=== PATIENT | male | born 1955 | race Caucasian/White ===

== ENCOUNTER 2018-04-29 01:43 | Inpatient (IN) | payer OTHER ==
[~2018-04-29] VITALS: Ht 175.3 cm; Wt 94.9 kg
[2018-04-29 04:10] LABS: Basophils # (auto) 0 uL; Basophils % (auto) 0.5 % (0.0-2.0); Eosinophils # (auto) 0.3 uL; Eosinophils % (auto) 3.3 % (0.0-7.0); Hematocrit 48.8 % (41.0-53.0); Hemoglobin 16.8 g/dL (13.5-17.5); Lymphocytes # (auto) 2.2 uL; Lymphocytes % (auto) 21.9 % (10.0-50.0); Mean Corpuscular Hgb Conc. 34.5 g/dL (32.0-36.0); Monocytes % (auto) 9.5 % (0.0-12.0); Neutrophils # (auto) 6.6 uL; Neutrophils % (auto) 64.8 % (37.0-80.0); Nucleated Red Blood Cells % 0.3 %; Platelet Count (auto) 235 10^3/uL (140-450); Red Blood Cells 5.82 10^6/uL (4.5-5.90); White Blood Cell 10.2 10^3/uL (4.4-10.8)
[2018-04-29 04:38] LABS: Calcium 8.2 mg/dL (8.5-10.1); Potassium 3.8 mmol/L (3.5-5.1)
[2018-04-29 04:41] LABS: Albumin 3.6 g/dL (3.4-5.0)
[2018-04-29 04:46] LABS: Bilirubin, Total 0.6 mg/dL (0.2-1.0); Total Protein 7.8 g/dL (6.4-8.2)
[2018-04-29 04:53] LABS: INR 0.93 (0.9-1.15); Partial Thromboplastin Time 28.1 sec (23.78-33.04)
[2018-04-29] MEDS: HYDROcodone-ACET 10/325MG TAB PO PRN ×4 (07:03→23:56)
[2018-04-29] MEDS ORDERED: MORPHINE SULF INJ 2 MG/ML SYRINGE 1ML IV PRN (07:15)
[2018-04-29] MEDS ORDERED: NITROGLYCERIN 0.4 MG SL TAB SL PRN (07:15)
[2018-04-29 07:52] VITALS: BP 155/90
--- NOTE | 2018-04-29 09:45 | NUR ---
Telemetry admit from ER [facility] admitted to Telemetry unit after SBAR received. Patient oriented to Howard Parks RN. Patient now on continuous telemetry monitoring, tele box # 13 and telemetry reading on arrival to unit is Sinus tachy 135. Denied of chest pain at this time. Patient placed on bedside oxygen, weighed by bedscale and encouraged to call if they need something. All questions and concerns addressed, patient verbalized understanding. Guards at bedside. Will continue care. VS: 98.1, 135, 18, 155/90, 9% on 2L via n/c.
[2018-04-29] MEDS ORDERED: ENOXAPARIN SOD 100 MG/1 ML SYRINGE SC ONE (10:00)
[2018-04-29] MEDS ORDERED: METOPROLOL TARTRATE 50 MG TAB PO ONE (10:00)
[2018-04-29] MEDS ORDERED: ASPirin-EC 81 mg tab PO ONE (10:00)
[2018-04-29] MEDS ORDERED: LISINOPRIL 5 MG TAB PO ONE (10:00)
[2018-04-29 12:00] VITALS: BP 148/77
--- NOTE | 2018-04-29 15:30 | NUR ---
DR. PUENTES AT BEDSIDE.
[2018-04-29 16:00] VITALS: BP 155/86
--- NOTE | 2018-04-29 19:26 | NUR ---
CARE ENDORSED TO ALBERTO VASQUEZ
[2018-04-29] MEDS: LEVETIRACETAM 500 MG TAB PO SCH (21:25)
[2018-04-29] MEDS: MIRTAZAPINE 30 MG TAB PO SCH (21:25)
[2018-04-29 21:50] VITALS: BP 119/76
[2018-04-30] MEDS: HYDROcodone-ACET 10/325MG TAB PO PRN ×5 (04:06→22:29)
[2018-04-30 05:20] VITALS: BP 117/74
--- NOTE | 2018-04-30 07:50 | NUR ---
Opening Shift Note Assumed care of patient, awake and alert. Guards at bedside. No S/S of distress/SOB or pain. Instructed on POC and to call for assist PRN, will continue to monitor for changes Q1hr and PRN.
[2018-04-30 08:00] VITALS: BP 132/80
[2018-04-30 09:00] VITALS: BP 132/80
[2018-04-30] MEDS: risperiDONE 1 MG TAB PO SCH (10:40)
[2018-04-30] MEDS: PANTOPRAZOLE 40 MG TAB PO SCH (10:40)
[2018-04-30] MEDS: LEVETIRACETAM 500 MG TAB PO SCH ×2 (10:40→22:29)
[2018-04-30 12:50] VITALS: BP 142/84
--- NOTE | 2018-04-30 15:15 | NUR ---
DR. KWOK AT BEDSIDE.
[2018-04-30 16:40] VITALS: BP 111/74
--- NOTE | 2018-04-30 19:50 | NUR ---
Opening shift Note Pt is resting in bed with eyes open and resp rate is even and unlabored. No s/s of any distress noted at this time. Pt is an inmate and with guards at bedside. Pt's right wrist and both ankles are cuffed to the bed. Skin is cdi. POC discussed with pt and pt verbalizes understanding. Bed is low, wheels are locked, and call light is within reach.
--- NOTE | 2018-04-30 19:58 | NUR ---
Care endorsed to Saige VASQUEZ.
[2018-04-30 21:30] VITALS: BP 105/65
[2018-04-30] MEDS: MIRTAZAPINE 30 MG TAB PO SCH (22:29)
[2018-05-01] MEDS ORDERED: METOPROLOL TARTRATE 50 MG TAB PO ONE (01:30)
[2018-05-01] MEDS ORDERED: AMINOPHYLLINE 250 MG/10 ML VL IV ONE (01:30)
[2018-05-01] MEDS: HYDROcodone-ACET 10/325MG TAB PO PRN ×2 (02:39→20:16)
[2018-05-01 05:00] VITALS: BP 117/53
--- NOTE | 2018-05-01 06:23 | NUR ---
Dr Dominguez at bedside and discussing POC with pt. Pt verbalizes understanding.
[2018-05-01 08:00] VITALS: BP 105/65
[2018-05-01 09:32] VITALS: BP 135/75
[2018-05-01] MEDS: LEVETIRACETAM 500 MG TAB PO SCH ×2 (10:08→21:16)
[2018-05-01] MEDS: risperiDONE 1 MG TAB PO SCH (10:09)
[2018-05-01] MEDS: METOPROLOL TARTRATE 50 MG TAB PO SCH ×2 (10:09→21:16)
[2018-05-01] MEDS: PANTOPRAZOLE 40 MG TAB PO SCH (10:09)
[2018-05-01 12:31] VITALS: BP 115/69
[2018-05-01 16:55] VITALS: BP 124/63
--- NOTE | 2018-05-01 19:30 | NUR ---
assumed care, pt. awake, no c/o pain, no sob.
[2018-05-01 21:00] VITALS: BP 133/80
[2018-05-01] MEDS: MIRTAZAPINE 30 MG TAB PO SCH (21:16)
[2018-05-02] VITALS (7 sets, daily range): BP systolic 113–166; BP diastolic 73–80
--- NOTE | 2018-05-02 08:08 | NUR ---
IV insertion IV access obtained, via clean sterile technique by inserting 22 gauge catheter at left hand after 1 attempt. IV secured properly. No trauma to site. Patient tolerated well.
[2018-05-02] MEDS ORDERED: ADENOSINE 81 MG in GIVE UN-DILUTED 0 ML IV STA (08:24)
[2018-05-02] MEDS: HYDROcodone-ACET 10/325MG TAB PO PRN ×3 (09:57→21:58)
[2018-05-02] MEDS: risperiDONE 1 MG TAB PO SCH (09:57)
[2018-05-02] MEDS: LEVETIRACETAM 500 MG TAB PO SCH ×2 (09:57→21:37)
[2018-05-02] MEDS: PANTOPRAZOLE 40 MG TAB PO SCH (09:57)
[2018-05-02] MEDS: METOPROLOL TARTRATE 50 MG TAB PO SCH ×2 (10:00→21:37)
--- NOTE | 2018-05-02 14:43 | NUR ---
Nutrition Assessment Notes Please see attached link for complete assessment Est. Needs based on ABW (84 kg): 3486-0029 kcal (23-25 kcal/kgBW), 84-92 gms pro (1.0-1.1 gms/kgBW). Will continue to monitor pertinent labs and reassess nutrient needs prn Addendum: 05/02/18 at [address] Amended: Links added.
--- NOTE | 2018-05-02 19:10 | NUR ---
assumed care, pt. awake, guards at bedside, no c/o pain, no sob.
[2018-05-02] MEDS: MIRTAZAPINE 30 MG TAB PO SCH (21:37)
[2018-05-03 05:00] VITALS: BP 124/57
[2018-05-03 07:39] VITALS: BP 114/79
[2018-05-03 09:00] VITALS: BP 141/67
[2018-05-03] MEDS: METOPROLOL TARTRATE 50 MG TAB PO SCH ×2 (09:10→21:39)
[2018-05-03] MEDS: risperiDONE 1 MG TAB PO SCH (09:10)
[2018-05-03] MEDS: LEVETIRACETAM 500 MG TAB PO SCH ×2 (09:10→21:38)
[2018-05-03] MEDS: PANTOPRAZOLE 40 MG TAB PO SCH (09:10)
--- NOTE | 2018-05-03 11:32 | NUR ---
Dr. Kian Dominguez at bedside, discussed stress test results and informed patient he will be needing a left heart cath and its risks and benefits. Patient verbalized understanding.
[2018-05-03] MEDS: HYDROcodone-ACET 10/325MG TAB PO PRN ×2 (12:36→21:39)
[2018-05-03 13:00] VITALS: BP 139/60
[2018-05-03 17:00] VITALS: BP 127/74
--- NOTE | 2018-05-03 19:15 | NUR ---
assumed care, pt. awake, no c/o pain, no sob.
[2018-05-03 21:30] VITALS: BP 131/74
[2018-05-03] MEDS: MIRTAZAPINE 30 MG TAB PO SCH (21:38)
[2018-05-04 04:30] VITALS: BP 120/61
[2018-05-04 07:26] LABS: Basophils # (auto) 0.1 uL; Basophils % (auto) 0.7 % (0.0-2.0); Eosinophils # (auto) 0.8 uL; Eosinophils % (auto) 9.2 % (0.0-7.0); Hematocrit 48.4 % (41.0-53.0); Hemoglobin 16.1 g/dL (13.5-17.5); Lymphocytes # (auto) 1.7 uL; Lymphocytes % (auto) 20.9 % (10.0-50.0); Mean Corpuscular Hemoglobin 28.4 pg (28.0-32.0); Mean Corpuscular Hgb Conc. 33.3 g/dL (32.0-36.0); Mean Corpuscular Volume 85.3 fL (80.0-100.0); Monocytes # (auto) 0.9 uL; Monocytes % (auto) 10.7 % (0.0-12.0); Neutrophils # (auto) 4.9 uL; Neutrophils % (auto) 58.5 % (37.0-80.0); Nucleated Red Blood Cells % 0.1 %; Platelet Count (auto) 221 10^3/uL (140-450); Red Blood Cells 5.68 10^6/uL (4.5-5.90); Red Cell Distribution Width 13.3 % (11.8-14.3); White Blood Cell 8.4 10^3/uL (4.4-10.8)
[2018-05-04] MEDS ORDERED: LIDOCAINE 2%HCL (LOCAL ANESTH.) INJ 20ML MDV ONE (07:33)
[2018-05-04] MEDS ORDERED: IODIXANOL 320MG/ML 100ML BTL IV ONE (07:33)
[2018-05-04 07:42] LABS: Albumin 3.3 g/dL (3.4-5.0); BUN/Creatinine Ratio 17.4; Calcium 8.6 mg/dL (8.5-10.1)
[2018-05-04 07:44] LABS: Bilirubin, Total 0.7 mg/dL (0.2-1.0); Total Protein 7.5 g/dL (6.4-8.2)
[2018-05-04] MEDS ORDERED: MIDAZOLAM HCL 1MG/1ML-2 ML VIAL ONE (07:46)
[2018-05-04] MEDS ORDERED: ANGIOMAX 250 MG VIAL IV ONE (07:46)
[2018-05-04] MEDS ORDERED: fentaNYL CITRATE 100 MCG/2 ML VL ONE (07:46)
[2018-05-04] MEDS ORDERED: SODIUM CHL 0.9% 0 ML ONE (07:47)
[2018-05-04] MEDS ORDERED: IOHEXOL 350 MG/ML 100ML IJ ONE (07:54)
[2018-05-04] MEDS ORDERED: ADENOSINE 6 MG/2 ML INJ IV ONE (08:01)
[2018-05-04 08:21] VITALS: BP 131/79
[2018-05-04] MEDS: risperiDONE 1 MG TAB PO SCH (10:26)
[2018-05-04] MEDS: PANTOPRAZOLE 40 MG TAB PO SCH (10:27)
[2018-05-04] MEDS: LEVETIRACETAM 500 MG TAB PO SCH (10:27)
[2018-05-04 13:00] VITALS: BP 120/79
[2018-05-04 13:24] VITALS: BP 131/79
--- NOTE | 2018-05-04 15:52 | NUR ---
Discharge instructions given as ordered. Encourage to follow up with PMD as instructed. All questions and concerns addressed. Patient verbalized understanding. Medication reconciliation form completed and copy given to patient. IV removed with catheter intact, pressure dressing applied. Telemetry unit returned to ICU. Patient taken to vehicle via wheelchair with all personal belongings, accompanied by nursing home guards. No distress noted at time of departure.
== END 2018-05-04 15:45 | DRG 287 ==
LOC: EDBD 01:43 → ER 01:46 → EEVIPCON 01:46 → TELE 06:30 → TELE-E-ADS 07:50
PROVIDERS: ADMIT Internal Medicine; ATTEND Internal Medicine
PROC: 4A023N7 Measurement of Cardiac Sampling and Pressure, Left Heart, Percutaneous Approach (ICD-10-PCS; principal; 2018-05-04)
PROC: B2151ZZ Fluoroscopy of Left Heart using Low Osmolar Contrast (ICD-10-PCS; 2018-05-04)
PROC: B2111ZZ Fluoroscopy of Multiple Coronary Arteries using Low Osmolar Contrast (ICD-10-PCS; 2018-05-04)
PROC: B41F1ZZ Fluoroscopy of Right Lower Extremity Arteries using Low Osmolar Contrast (ICD-10-PCS; 2018-05-04)
PROC: 4A133BC Monitoring of Arterial Pressure, Coronary, Percutaneous Approach (ICD-10-PCS; 2018-05-04)
DX: I25.110 Atherosclerotic heart disease of native coronary artery with unstable angina pectoris (principal); I48.2 Chronic atrial fibrillation; E66.9 Obesity, unspecified; F25.9 Schizoaffective disorder, unspecified; I10 Essential (primary) hypertension; I25.82 Chronic total occlusion of coronary artery; K21.9 Gastro-esophageal reflux disease without esophagitis; Z87.11 Personal history of peptic ulcer disease; Z82.49 Family history of ischemic heart disease and other diseases of the circulatory system; Z68.30 Body mass index [BMI] 30.0-30.9, adult
CPT/HCPCS: 36415; 71045; 78452; 80053; 83880; 84484; 85025; 85610; 85730; 93005; 93017; 93458; G0378; J0153; J2250; Q9967